=== PATIENT | male | born 1950 | race Caucasian/White ===

== ENCOUNTER 2019-05-23 17:45 | Inpatient (IN) | payer MEDICARE, OTHER ==
[~2019-05-23] VITALS: Ht 170.2 cm; Wt 105.2 kg
[2019-05-23 19:20] VITALS: BP 105/69
[2019-05-23] MEDS ORDERED: GuaiFENesin/D-METHORPHAN [SUGAR-FREE] 200-20MG/10 ML SYRUP UDCUP PO PRN (20:45)
[2019-05-23] MEDS: IPRATROPIUM BROMIDE 0.5 MG/2.5 ML NEB SOLUTION NEB PRN (21:42)
[2019-05-23] MEDS: ALBUTEROL SULFATE 2.5 MG/0.5 ML NEB SOLUTION NEB PRN (21:42)
[2019-05-23 21:51] VITALS: BP 124/74
[2019-05-23] MEDS: ACETAMINOPHEN 325 MG TABLET PO PRN (21:54)
[2019-05-23] MEDS: MELATONIN 5 MG TABLET PO PRN (21:55)
[2019-05-23] MEDS: ATORVASTATIN CALCIUM 40 MG TABLET PO SCH (21:55)
[2019-05-23] MEDS: CARVEDILOL 3.125 MG TABLET PO SCH (21:55)
[2019-05-23] MEDS: SENNA 187 MG TABLET PO SCH (21:55)
[2019-05-23] MEDS: DOCUSATE SODIUM 100 MG CAPSULE PO SCH (21:55)
[2019-05-23] MEDS: TICAGRELOR 90 MG TABLET PO SCH (21:56)
[2019-05-23] MEDS: HEPARIN SODIUM,PORCINE 5,000 UNITS/ML VIAL SQ SCH (21:58)
[2019-05-24 01:45] VITALS: BP 110/58
[2019-05-24 06:17] LABS: BASOPHILS % (AUTO) 1.3 % (0.0-2.0); HEMATOCRIT 32.1 % (41-53); LYMPHOCYTES # (AUTO) 1.2 K/uL (1.0-4.8); LYMPHOCYTES % (AUTO) 10.9 % (22.0-44.0); MEAN CORPUSCULAR HEMOGLOBIN 31.4 pg (26.0-34.0); MEAN CORPUSCULAR HGB CONC 34.2 G/dL (31.0-37.0); MEAN CORPUSCULAR VOLUME 92 fL (80-100); MONOCYTES # (AUTO) 0.8 K/uL (0.1-1.0); MONOCYTES % (AUTO) 7.5 % (2.0-9.0); NEUTROPHILS # (AUTO) 8.2 K/uL (1.8-7.7); NEUTROPHILS % (AUTO) 76.3 % (40.0-70.0); PLATELET COUNT (AUTO) 268 K/uL (150-450); RED BLOOD CELL COUNT(AUTO) 3.51 MIL/uL (4.50-5.90); RED CELL DISTRIBUTION WIDTH 15.6 % (11.5-14.5)
[2019-05-24 06:34] LABS: ALBUMIN 2.5 g/dL (3.4-5.0); BILIRUBIN,TOTAL 0.5 mg/dL (0.1-1.0); CALCIUM, TOTAL 8.8 mg/dL (8.8-10.5); CREATININE 2.09 mg/dL (0.60-1.30); POTASSIUM 4.7 mmol/L (3.5-5.1); TOTAL PROTEIN, SERUM 6.3 g/dL (6.4-8.2)
[2019-05-24] MEDS: LISINOPRIL 5 MG TABLET PO SCH (08:41)
[2019-05-24] MEDS: DOCUSATE SODIUM 100 MG CAPSULE PO SCH ×2 (08:41→20:32)
[2019-05-24] MEDS: CARVEDILOL 3.125 MG TABLET PO SCH ×2 (08:41→20:32)
[2019-05-24] MEDS: ASPIRIN 81 MG EC TABLET PO SCH (08:41)
[2019-05-24] MEDS: COLCHICINE 0.6 MG TABLET PO SCH (08:42)
[2019-05-24] MEDS: TICAGRELOR 90 MG TABLET PO SCH ×2 (08:42→20:32)
[2019-05-24] MEDS: NICOTINE 7 MG/24 HOUR PATCH TD SCH (08:45)
[2019-05-24 08:53] VITALS: BP 130/63
[2019-05-24] MEDS: HEPARIN SODIUM,PORCINE 5,000 UNITS/ML VIAL SQ SCH ×3 (09:35→20:32)
[2019-05-24 15:21] VITALS: BP 122/75
[2019-05-24] MEDS: ATORVASTATIN CALCIUM 40 MG TABLET PO SCH (20:32)
[2019-05-24] MEDS: MELATONIN 5 MG TABLET PO PRN (20:32)
[2019-05-24] MEDS: SENNA 187 MG TABLET PO SCH (20:32)
[2019-05-24] MEDS: IPRATROPIUM BROMIDE 0.5 MG/2.5 ML NEB SOLUTION NEB PRN (21:35)
[2019-05-24] MEDS: ALBUTEROL SULFATE 2.5 MG/0.5 ML NEB SOLUTION NEB PRN (21:35)
[2019-05-25 00:55] VITALS: BP 125/71
[2019-05-25] MEDS: ACETAMINOPHEN 325 MG TABLET PO PRN (03:47)
[2019-05-25] MEDS: COLCHICINE 0.6 MG TABLET PO SCH (08:50)
[2019-05-25] MEDS: CARVEDILOL 3.125 MG TABLET PO SCH ×2 (08:50→21:13)
[2019-05-25] MEDS: TICAGRELOR 90 MG TABLET PO SCH ×2 (08:50→21:14)
[2019-05-25] MEDS: LISINOPRIL 5 MG TABLET PO SCH (08:50)
[2019-05-25] MEDS: ASPIRIN 81 MG EC TABLET PO SCH (08:51)
[2019-05-25] MEDS: HEPARIN SODIUM,PORCINE 5,000 UNITS/ML VIAL SQ SCH ×2 (08:52→21:14)
[2019-05-25] MEDS: NICOTINE 7 MG/24 HOUR PATCH TD SCH (08:58)
[2019-05-25] MEDS: COLD CREAM, SKIN EMOLLIENT 170 GM JAR TP SCH (08:58)
[2019-05-25] MEDS: DOCUSATE SODIUM 100 MG CAPSULE PO SCH ×2 (08:59→21:00)
[2019-05-25 09:35] VITALS: BP 131/54
[2019-05-25] MEDS: FUROSEMIDE 40 MG TABLET PO SCH (13:21)
[2019-05-25 17:36] VITALS: BP 121/70
[2019-05-25] MEDS: SENNA 187 MG TABLET PO SCH (21:00)
[2019-05-25] MEDS: ATORVASTATIN CALCIUM 40 MG TABLET PO SCH (21:14)
[2019-05-25] MEDS: MELATONIN 5 MG TABLET PO PRN (21:18)
[2019-05-26 01:14] VITALS: BP 122/70
[2019-05-26] MEDS: ACETAMINOPHEN 325 MG TABLET PO PRN (04:21)
[2019-05-26 06:14] LABS: BASOPHILS % (AUTO) 0.3 % (0.0-2.0); EOSINOPHILS % (AUTO) 4.1 % (1.0-6.0); LYMPHOCYTES # (AUTO) 1.1 K/uL (1.0-4.8); LYMPHOCYTES % (AUTO) 9.9 % (22.0-44.0); MEAN CORPUSCULAR HEMOGLOBIN 31.8 pg (26.0-34.0); MEAN CORPUSCULAR HGB CONC 34.4 G/dL (31.0-37.0); MEAN CORPUSCULAR VOLUME 93 fL (80-100); MONOCYTES # (AUTO) 0.8 K/uL (0.1-1.0); NEUTROPHILS # (AUTO) 9.1 K/uL (1.8-7.7); NEUTROPHILS % (AUTO) 78.7 % (40.0-70.0); PLATELET COUNT (AUTO) 328 K/uL (150-450); RED BLOOD CELL COUNT(AUTO) 3.79 MIL/uL (4.50-5.90)
[2019-05-26 06:41] LABS: ALBUMIN 2.9 g/dL (3.4-5.0); BILIRUBIN,TOTAL 0.8 mg/dL (0.1-1.0); CALCIUM, TOTAL 9.5 mg/dL (8.8-10.5); CREATININE 2.07 mg/dL (0.60-1.30); POTASSIUM 4.6 mmol/L (3.5-5.1); TOTAL PROTEIN, SERUM 7.3 g/dL (6.4-8.2)
[2019-05-26 07:45] VITALS: BP 124/74
[2019-05-26] MEDS: TICAGRELOR 90 MG TABLET PO SCH ×2 (08:46→21:25)
[2019-05-26] MEDS: COLCHICINE 0.6 MG TABLET PO SCH (08:46)
[2019-05-26] MEDS: ASPIRIN 81 MG EC TABLET PO SCH (08:47)
[2019-05-26] MEDS: LISINOPRIL 5 MG TABLET PO SCH (08:47)
[2019-05-26] MEDS: FUROSEMIDE 40 MG TABLET PO SCH (08:47)
[2019-05-26] MEDS: CARVEDILOL 3.125 MG TABLET PO SCH ×2 (08:47→21:25)
[2019-05-26] MEDS: HEPARIN SODIUM,PORCINE 5,000 UNITS/ML VIAL SQ SCH ×2 (08:48→21:26)
[2019-05-26] MEDS: COLD CREAM, SKIN EMOLLIENT 170 GM JAR TP SCH (08:54)
[2019-05-26] MEDS: NICOTINE 7 MG/24 HOUR PATCH TD SCH (08:59)
[2019-05-26] MEDS: DOCUSATE SODIUM 100 MG CAPSULE PO SCH ×2 (09:00→21:00)
[2019-05-26 16:03] VITALS: BP 134/56
[2019-05-26] MEDS: SENNA 187 MG TABLET PO SCH (21:00)
[2019-05-26] MEDS: ATORVASTATIN CALCIUM 40 MG TABLET PO SCH (21:25)
[2019-05-26] MEDS: MELATONIN 5 MG TABLET PO PRN (21:25)
[2019-05-27 02:48] VITALS: BP 122/68
[2019-05-27] MEDS: ACETAMINOPHEN 325 MG TABLET PO PRN (03:43)
[2019-05-27] MEDS: FAMOTIDINE 20 MG TABLET PO SCH ×2 (06:01→17:04)
[2019-05-27 08:02] VITALS: BP 114/56
[2019-05-27] MEDS: DOCUSATE SODIUM 100 MG CAPSULE PO SCH ×3 (09:00→21:05)
[2019-05-27] MEDS: NICOTINE 7 MG/24 HOUR PATCH TD SCH (09:00)
[2019-05-27] MEDS: COLCHICINE 0.6 MG TABLET PO SCH (09:11)
[2019-05-27] MEDS: LISINOPRIL 5 MG TABLET PO SCH (09:11)
[2019-05-27] MEDS: TICAGRELOR 90 MG TABLET PO SCH ×2 (09:11→21:05)
[2019-05-27] MEDS: CARVEDILOL 3.125 MG TABLET PO SCH ×2 (09:11→21:05)
[2019-05-27] MEDS: FUROSEMIDE 40 MG TABLET PO SCH (09:11)
[2019-05-27] MEDS: POTASSIUM CHLORIDE 20 MEQ ER TABLET PO SCH (09:12)
[2019-05-27] MEDS: ASPIRIN 81 MG EC TABLET PO SCH (09:12)
[2019-05-27] MEDS: HEPARIN SODIUM,PORCINE 5,000 UNITS/ML VIAL SQ SCH ×2 (09:13→21:05)
[2019-05-27] MEDS: COLD CREAM, SKIN EMOLLIENT 170 GM JAR TP SCH (09:16)
[2019-05-27 16:20] VITALS: BP 113/61
[2019-05-27] MEDS: SENNA 187 MG TABLET PO SCH ×2 (21:00→21:05)
[2019-05-27] MEDS: ATORVASTATIN CALCIUM 40 MG TABLET PO SCH (21:05)
[2019-05-27 21:14] VITALS: BP 125/69
[2019-05-28 01:28] VITALS: BP 139/82
[2019-05-28] MEDS: ACETAMINOPHEN 325 MG TABLET PO PRN ×2 (01:28→08:05)
[2019-05-28] MEDS: FAMOTIDINE 20 MG TABLET PO SCH ×2 (05:09→17:08)
[2019-05-28 08:05] VITALS: BP 124/73
[2019-05-28] MEDS: POTASSIUM CHLORIDE 20 MEQ ER TABLET PO SCH (08:05)
[2019-05-28] MEDS: DOCUSATE SODIUM 100 MG CAPSULE PO SCH ×2 (08:05→20:15)
[2019-05-28] MEDS: LISINOPRIL 5 MG TABLET PO SCH (08:05)
[2019-05-28] MEDS: FUROSEMIDE 40 MG TABLET PO SCH (08:05)
[2019-05-28] MEDS: ASPIRIN 81 MG EC TABLET PO SCH (08:05)
[2019-05-28] MEDS: HEPARIN SODIUM,PORCINE 5,000 UNITS/ML VIAL SQ SCH ×2 (08:05→20:15)
[2019-05-28] MEDS: COLCHICINE 0.6 MG TABLET PO SCH (08:05)
[2019-05-28] MEDS: CARVEDILOL 3.125 MG TABLET PO SCH ×2 (08:06→20:15)
[2019-05-28] MEDS: NICOTINE 7 MG/24 HOUR PATCH TD SCH (08:06)
[2019-05-28] MEDS: COLD CREAM, SKIN EMOLLIENT 170 GM JAR TP SCH (08:07)
[2019-05-28] MEDS: TICAGRELOR 90 MG TABLET PO SCH ×2 (08:07→20:15)
[2019-05-28 09:55] VITALS: BP 124/73
[2019-05-28 16:57] VITALS: BP 122/65
[2019-05-28] MEDS: SENNA 187 MG TABLET PO SCH (20:15)
[2019-05-28] MEDS: ATORVASTATIN CALCIUM 40 MG TABLET PO SCH (20:15)
[2019-05-28 20:16] VITALS: BP 112/59
[2019-05-29 00:06] VITALS: BP 144/72
[2019-05-29] MEDS: FAMOTIDINE 20 MG TABLET PO SCH ×2 (05:51→16:34)
[2019-05-29] MEDS: ACETAMINOPHEN 325 MG TABLET PO PRN ×3 (06:36→21:41)
[2019-05-29 07:36] VITALS: BP 130/74
[2019-05-29] MEDS: COLCHICINE 0.6 MG TABLET PO SCH (08:32)
[2019-05-29] MEDS: POTASSIUM CHLORIDE 20 MEQ ER TABLET PO SCH (08:33)
[2019-05-29] MEDS: TICAGRELOR 90 MG TABLET PO SCH ×2 (08:33→19:08)
[2019-05-29] MEDS: CARVEDILOL 3.125 MG TABLET PO SCH ×2 (08:33→19:08)
[2019-05-29] MEDS: DOCUSATE SODIUM 100 MG CAPSULE PO SCH ×2 (08:33→19:09)
[2019-05-29] MEDS: LISINOPRIL 5 MG TABLET PO SCH (08:33)
[2019-05-29] MEDS: ASPIRIN 81 MG EC TABLET PO SCH (08:33)
[2019-05-29] MEDS: FUROSEMIDE 40 MG TABLET PO SCH (08:33)
[2019-05-29] MEDS: HEPARIN SODIUM,PORCINE 5,000 UNITS/ML VIAL SQ SCH ×2 (08:34→19:08)
[2019-05-29] MEDS: NICOTINE 7 MG/24 HOUR PATCH TD SCH (08:35)
[2019-05-29] MEDS: COLD CREAM, SKIN EMOLLIENT 170 GM JAR TP SCH (08:35)
[2019-05-29 15:26] VITALS: BP 120/70
[2019-05-29] MEDS: ATORVASTATIN CALCIUM 40 MG TABLET PO SCH (19:08)
[2019-05-29] MEDS: SENNA 187 MG TABLET PO SCH (19:08)
[2019-05-29 19:09] VITALS: BP 109/66
[2019-05-29] MEDS: MELATONIN 5 MG TABLET PO PRN (19:21)
[2019-05-30] VITALS: BP 118/64
[2019-05-30] MEDS: FAMOTIDINE 20 MG TABLET PO SCH ×2 (06:13→16:31)
[2019-05-30 08:00] VITALS: BP 130/62
[2019-05-30] MEDS: TICAGRELOR 90 MG TABLET PO SCH ×2 (08:40→20:29)
[2019-05-30] MEDS: HEPARIN SODIUM,PORCINE 5,000 UNITS/ML VIAL SQ SCH ×2 (08:40→20:29)
[2019-05-30] MEDS: DOCUSATE SODIUM 100 MG CAPSULE PO SCH ×2 (08:40→20:29)
[2019-05-30] MEDS: POTASSIUM CHLORIDE 20 MEQ ER TABLET PO SCH (08:40)
[2019-05-30] MEDS: FUROSEMIDE 40 MG TABLET PO SCH (08:40)
[2019-05-30] MEDS: LISINOPRIL 5 MG TABLET PO SCH (08:40)
[2019-05-30] MEDS: CARVEDILOL 3.125 MG TABLET PO SCH ×2 (08:40→20:29)
[2019-05-30] MEDS: COLCHICINE 0.6 MG TABLET PO SCH (08:41)
[2019-05-30] MEDS: ASPIRIN 81 MG EC TABLET PO SCH (08:41)
[2019-05-30] MEDS: COLD CREAM, SKIN EMOLLIENT 170 GM JAR TP SCH (08:42)
[2019-05-30] MEDS ORDERED: LISI-660 PO (11:02)
[2019-05-30] MEDS ORDERED: FURO20TA4 PO (11:03)
[2019-05-30] MEDS ORDERED: ATOR40TA71 PO (11:04)
[2019-05-30] MEDS ORDERED: NICO-704 TD (11:04)
[2019-05-30] MEDS ORDERED: METO25XL PO (11:05)
[2019-05-30] MEDS ORDERED: ASPI-1182 PO (11:12)
[2019-05-30] MEDS: ACETAMINOPHEN 325 MG TABLET PO PRN (13:32)
[2019-05-30 15:40] VITALS: BP 128/63
[2019-05-30] MEDS ORDERED: LISI-661 PO (16:51)
[2019-05-30] MEDS ORDERED: METO-558 PO (16:51)
[2019-05-30] MEDS: BENZOCAINE/MENTHOL LOZENGE PO PRN (18:40)
[2019-05-30 20:27] VITALS: BP 132/71
[2019-05-30] MEDS: SENNA 187 MG TABLET PO SCH (20:29)
[2019-05-30] MEDS: ATORVASTATIN CALCIUM 40 MG TABLET PO SCH (20:29)
[2019-05-30] MEDS: MELATONIN 5 MG TABLET PO PRN (21:39)
[2019-05-31 01:00] VITALS: BP 143/69
[2019-05-31] MEDS: ACETAMINOPHEN 325 MG TABLET PO PRN ×2 (04:06→23:59)
[2019-05-31] MEDS: BENZOCAINE/MENTHOL LOZENGE PO PRN ×2 (04:07→22:15)
[2019-05-31] MEDS: FAMOTIDINE 20 MG TABLET PO SCH ×2 (06:38→17:07)
[2019-05-31 06:43] LABS: BASOPHILS % (AUTO) 0.5 % (0.0-2.0); EOSINOPHILS % (AUTO) 4.7 % (1.0-6.0); HEMATOCRIT 36.7 % (41-53); HEMOGLOBIN 12.5 g/dL (13.5-17.5); LYMPHOCYTES # (AUTO) 0.9 K/uL (1.0-4.8); LYMPHOCYTES % (AUTO) 11.4 % (22.0-44.0); MEAN CORPUSCULAR HEMOGLOBIN 31.6 pg (26.0-34.0); MEAN CORPUSCULAR HGB CONC 34.1 G/dL (31.0-37.0); MEAN CORPUSCULAR VOLUME 93 fL (80-100); MONOCYTES # (AUTO) 0.6 K/uL (0.1-1.0); NEUTROPHILS % (AUTO) 75.4 % (40.0-70.0); PLATELET COUNT (AUTO) 319 K/uL (150-450); RED BLOOD CELL COUNT(AUTO) 3.96 MIL/uL (4.50-5.90); RED CELL DISTRIBUTION WIDTH 15.9 % (11.5-14.5)
[2019-05-31 07:08] LABS: ALBUMIN 3.2 g/dL (3.4-5.0); BILIRUBIN,TOTAL 0.7 mg/dL (0.1-1.0); CALCIUM, TOTAL 9.9 mg/dL (8.8-10.5); CREATININE 2.23 mg/dL (0.60-1.30); POTASSIUM 4.3 mmol/L (3.5-5.1); TOTAL PROTEIN, SERUM 7.7 g/dL (6.4-8.2)
[2019-05-31] MEDS: COLCHICINE 0.6 MG TABLET PO SCH (08:23)
[2019-05-31] MEDS: LISINOPRIL 5 MG TABLET PO SCH (08:23)
[2019-05-31] MEDS: CARVEDILOL 3.125 MG TABLET PO SCH ×2 (08:23→21:07)
[2019-05-31] MEDS: ASPIRIN 81 MG EC TABLET PO SCH (08:23)
[2019-05-31] MEDS: TICAGRELOR 90 MG TABLET PO SCH ×2 (08:23→21:07)
[2019-05-31] MEDS: POTASSIUM CHLORIDE 20 MEQ ER TABLET PO SCH (08:24)
[2019-05-31] MEDS: DOCUSATE SODIUM 100 MG CAPSULE PO SCH ×2 (08:24→21:07)
[2019-05-31] MEDS: HEPARIN SODIUM,PORCINE 5,000 UNITS/ML VIAL SQ SCH ×2 (08:24→21:06)
[2019-05-31] MEDS: FUROSEMIDE 40 MG TABLET PO SCH (08:24)
[2019-05-31] MEDS: COLD CREAM, SKIN EMOLLIENT 170 GM JAR TP SCH (08:25)
[2019-05-31 08:41] VITALS: BP 126/73
[2019-05-31 08:48] VITALS: BP 126/73
[2019-05-31 15:45] VITALS: BP 115/66
[2019-05-31 21:03] VITALS: BP 110/55
[2019-05-31] MEDS: ATORVASTATIN CALCIUM 40 MG TABLET PO SCH (21:06)
[2019-05-31] MEDS: MELATONIN 5 MG TABLET PO PRN (21:06)
[2019-05-31] MEDS: SENNA 187 MG TABLET PO SCH (21:07)
[2019-05-31 23:59] VITALS: BP 122/57
[2019-06-01] MEDS: FAMOTIDINE 20 MG TABLET PO SCH ×2 (06:31→16:53)
[2019-06-01 07:20] VITALS: BP 138/63
[2019-06-01] MEDS: HEPARIN SODIUM,PORCINE 5,000 UNITS/ML VIAL SQ SCH ×2 (08:36→21:19)
[2019-06-01] MEDS: TICAGRELOR 90 MG TABLET PO SCH ×2 (08:37→21:19)
[2019-06-01] MEDS: CARVEDILOL 3.125 MG TABLET PO SCH ×2 (08:37→21:19)
[2019-06-01] MEDS: POTASSIUM CHLORIDE 20 MEQ ER TABLET PO SCH (08:37)
[2019-06-01] MEDS: DOCUSATE SODIUM 100 MG CAPSULE PO SCH ×2 (08:37→21:19)
[2019-06-01] MEDS: FUROSEMIDE 40 MG TABLET PO SCH (08:37)
[2019-06-01] MEDS: COLCHICINE 0.6 MG TABLET PO SCH (08:37)
[2019-06-01] MEDS: ASPIRIN 81 MG EC TABLET PO SCH (08:37)
[2019-06-01] MEDS: LISINOPRIL 5 MG TABLET PO SCH (08:37)
[2019-06-01] MEDS: COLD CREAM, SKIN EMOLLIENT 170 GM JAR TP SCH (08:38)
[2019-06-01] MEDS: BENZOCAINE/MENTHOL LOZENGE PO PRN (13:22)
[2019-06-01 16:32] VITALS: BP 131/68
[2019-06-01] MEDS: ALBUTEROL SULFATE 2.5 MG/0.5 ML NEB SOLUTION NEB SCH ×3 (17:01→23:00)
[2019-06-01] MEDS: IPRATROPIUM BROMIDE 0.5 MG/2.5 ML NEB SOLUTION NEB SCH ×3 (17:01→23:00)
[2019-06-01] MEDS: SENNA 187 MG TABLET PO SCH (21:19)
[2019-06-01] MEDS: ATORVASTATIN CALCIUM 40 MG TABLET PO SCH (21:19)
[2019-06-01] MEDS: ACETAMINOPHEN 325 MG TABLET PO PRN (23:20)
[2019-06-01] MEDS: MELATONIN 5 MG TABLET PO PRN (23:20)
[2019-06-02 00:20] VITALS: BP 126/66
[2019-06-02] MEDS: IPRATROPIUM BROMIDE 0.5 MG/2.5 ML NEB SOLUTION NEB SCH ×6 (02:40→23:19)
[2019-06-02] MEDS: ALBUTEROL SULFATE 2.5 MG/0.5 ML NEB SOLUTION NEB SCH ×6 (02:40→23:19)
[2019-06-02] MEDS: FAMOTIDINE 20 MG TABLET PO SCH ×2 (06:31→16:41)
[2019-06-02 06:40] LABS: CALCIUM, TOTAL 9.1 mg/dL (8.8-10.5); CREATININE 2.21 mg/dL (0.60-1.30); POTASSIUM 4.4 mmol/L (3.5-5.1)
[2019-06-02] MEDS: HEPARIN SODIUM,PORCINE 5,000 UNITS/ML VIAL SQ SCH ×2 (07:53→20:04)
[2019-06-02] MEDS: POTASSIUM CHLORIDE 20 MEQ ER TABLET PO SCH (07:54)
[2019-06-02] MEDS: ASPIRIN 81 MG EC TABLET PO SCH (07:54)
[2019-06-02] MEDS: DOCUSATE SODIUM 100 MG CAPSULE PO SCH ×2 (07:55→20:04)
[2019-06-02] MEDS: TICAGRELOR 90 MG TABLET PO SCH ×2 (07:55→20:04)
[2019-06-02] MEDS: COLCHICINE 0.6 MG TABLET PO SCH (07:55)
[2019-06-02] MEDS: LISINOPRIL 5 MG TABLET PO SCH (07:55)
[2019-06-02] MEDS: FUROSEMIDE 40 MG TABLET PO SCH (07:55)
[2019-06-02] MEDS: CARVEDILOL 3.125 MG TABLET PO SCH ×2 (07:55→20:04)
[2019-06-02] MEDS: COLD CREAM, SKIN EMOLLIENT 170 GM JAR TP SCH (08:08)
[2019-06-02 08:47] VITALS: BP 148/60
[2019-06-02 15:58] VITALS: BP 118/86
[2019-06-02] MEDS: SENNA 187 MG TABLET PO SCH (20:04)
[2019-06-02] MEDS: ATORVASTATIN CALCIUM 40 MG TABLET PO SCH (20:04)
[2019-06-02] MEDS: MELATONIN 5 MG TABLET PO PRN (20:04)
[2019-06-03] MEDS ORDERED: COLC0.6T73 PO (00:36)
[2019-06-03] MEDS ORDERED: FURO40 PO (00:36)
[2019-06-03] MEDS ORDERED: FAMO20 PO (00:36)
[2019-06-03] MEDS ORDERED: TICA90TA PO (00:36)
[2019-06-03] MEDS ORDERED: DOCU-275 PO (00:36)
[2019-06-03] MEDS ORDERED: LISI-660 PO (00:36)
[2019-06-03] MEDS ORDERED: CARV3 PO (00:36)
[2019-06-03] MEDS ORDERED: KDUR20 PO (00:36)
[2019-06-03] MEDS ORDERED: IPRA4AER IH (00:39)
[2019-06-03 02:00] VITALS: BP 106/58
[2019-06-03] MEDS: ALBUTEROL SULFATE 2.5 MG/0.5 ML NEB SOLUTION NEB SCH ×6 (03:21→23:00)
[2019-06-03] MEDS: IPRATROPIUM BROMIDE 0.5 MG/2.5 ML NEB SOLUTION NEB SCH ×6 (03:21→23:00)
[2019-06-03] MEDS: ACETAMINOPHEN 325 MG TABLET PO PRN (03:40)
[2019-06-03] MEDS: BENZOCAINE/MENTHOL LOZENGE PO PRN ×4 (04:16→21:01)
[2019-06-03] MEDS: FAMOTIDINE 20 MG TABLET PO SCH ×2 (06:08→16:58)
[2019-06-03 06:24] LABS: BASOPHILS % (AUTO) 1.4 % (0.0-2.0); EOSINOPHILS % (AUTO) 6.4 % (1.0-6.0); HEMATOCRIT 33.2 % (41-53); HEMOGLOBIN 11.3 g/dL (13.5-17.5); LYMPHOCYTES # (AUTO) 1.1 K/uL (1.0-4.8); LYMPHOCYTES % (AUTO) 13.9 % (22.0-44.0); MEAN CORPUSCULAR HEMOGLOBIN 31.6 pg (26.0-34.0); MEAN CORPUSCULAR HGB CONC 34.1 G/dL (31.0-37.0); MEAN CORPUSCULAR VOLUME 93 fL (80-100); MONOCYTES # (AUTO) 0.8 K/uL (0.1-1.0); MONOCYTES % (AUTO) 10.3 % (2.0-9.0); NEUTROPHILS # (AUTO) 5.5 K/uL (1.8-7.7); PLATELET COUNT (AUTO) 241 K/uL (150-450); RED BLOOD CELL COUNT(AUTO) 3.58 MIL/uL (4.50-5.90); RED CELL DISTRIBUTION WIDTH 15.9 % (11.5-14.5)
[2019-06-03 06:46] LABS: BILIRUBIN,TOTAL 0.5 mg/dL (0.1-1.0); CALCIUM, TOTAL 9.4 mg/dL (8.8-10.5); CREATININE 2.4 mg/dL (0.60-1.30); POTASSIUM 4.6 mmol/L (3.5-5.1)
[2019-06-03 07:35] VITALS: BP 126/69
[2019-06-03] MEDS: CARVEDILOL 3.125 MG TABLET PO SCH ×2 (07:46→20:28)
[2019-06-03] MEDS: POTASSIUM CHLORIDE 20 MEQ ER TABLET PO SCH (07:46)
[2019-06-03] MEDS: LISINOPRIL 5 MG TABLET PO SCH (07:46)
[2019-06-03] MEDS: FUROSEMIDE 40 MG TABLET PO SCH (07:47)
[2019-06-03] MEDS: TICAGRELOR 90 MG TABLET PO SCH ×2 (07:47→20:28)
[2019-06-03] MEDS: HEPARIN SODIUM,PORCINE 5,000 UNITS/ML VIAL SQ SCH ×2 (07:47→20:28)
[2019-06-03] MEDS: DOCUSATE SODIUM 100 MG CAPSULE PO SCH ×2 (07:47→20:28)
[2019-06-03] MEDS: COLCHICINE 0.6 MG TABLET PO SCH (07:47)
[2019-06-03] MEDS: ASPIRIN 81 MG EC TABLET PO SCH (07:47)
[2019-06-03] MEDS: COLD CREAM, SKIN EMOLLIENT 170 GM JAR TP SCH (07:50)
[2019-06-03 18:53] VITALS: BP 126/68
[2019-06-03] MEDS: MELATONIN 5 MG TABLET PO PRN (20:28)
[2019-06-03] MEDS: ATORVASTATIN CALCIUM 40 MG TABLET PO SCH (20:28)
[2019-06-03] MEDS: SENNA 187 MG TABLET PO SCH (20:28)
[2019-06-04 02:00] VITALS: BP 124/58
[2019-06-04] MEDS: ACETAMINOPHEN 325 MG TABLET PO PRN ×2 (02:54→14:54)
[2019-06-04] MEDS: BENZOCAINE/MENTHOL LOZENGE PO PRN ×4 (02:55→14:54)
[2019-06-04] MEDS: ALBUTEROL SULFATE 2.5 MG/0.5 ML NEB SOLUTION NEB SCH ×6 (03:00→23:00)
[2019-06-04] MEDS: IPRATROPIUM BROMIDE 0.5 MG/2.5 ML NEB SOLUTION NEB SCH ×6 (03:00→23:00)
[2019-06-04] MEDS: FAMOTIDINE 20 MG TABLET PO SCH ×2 (06:39→16:38)
[2019-06-04 08:00] VITALS: BP 126/56
[2019-06-04] MEDS: FUROSEMIDE 40 MG TABLET PO SCH (08:29)
[2019-06-04] MEDS: POTASSIUM CHLORIDE 20 MEQ ER TABLET PO SCH (08:29)
[2019-06-04] MEDS: ASPIRIN 81 MG EC TABLET PO SCH (08:29)
[2019-06-04] MEDS: COLCHICINE 0.6 MG TABLET PO SCH (08:29)
[2019-06-04] MEDS: LISINOPRIL 5 MG TABLET PO SCH (08:29)
[2019-06-04] MEDS: TICAGRELOR 90 MG TABLET PO SCH ×2 (08:29→21:16)
[2019-06-04] MEDS: CARVEDILOL 3.125 MG TABLET PO SCH ×2 (08:30→21:15)
[2019-06-04] MEDS: DOCUSATE SODIUM 100 MG CAPSULE PO SCH ×2 (08:30→21:15)
[2019-06-04] MEDS: HEPARIN SODIUM,PORCINE 5,000 UNITS/ML VIAL SQ SCH ×2 (08:35→21:16)
[2019-06-04] MEDS: COLD CREAM, SKIN EMOLLIENT 170 GM JAR TP SCH (08:42)
[2019-06-04 16:07] VITALS: BP 122/75
[2019-06-04] MEDS: SENNA 187 MG TABLET PO SCH (21:15)
[2019-06-04] MEDS: ATORVASTATIN CALCIUM 40 MG TABLET PO SCH (21:16)
[2019-06-04 21:24] VITALS: BP 120/54
[2019-06-04] MEDS: MELATONIN 5 MG TABLET PO PRN (23:56)
[2019-06-05 01:00] VITALS: BP 128/70
[2019-06-05] MEDS: ALBUTEROL SULFATE 2.5 MG/0.5 ML NEB SOLUTION NEB SCH ×3 (03:00→11:00)
[2019-06-05] MEDS: IPRATROPIUM BROMIDE 0.5 MG/2.5 ML NEB SOLUTION NEB SCH ×3 (03:00→11:00)
[2019-06-05] MEDS: FAMOTIDINE 20 MG TABLET PO SCH (05:53)
[2019-06-05] MEDS: ACETAMINOPHEN 325 MG TABLET PO PRN (05:54)
[2019-06-05 08:00] VITALS: BP 104/63
[2019-06-05] MEDS: DOCUSATE SODIUM 100 MG CAPSULE PO SCH (08:47)
[2019-06-05] MEDS: COLCHICINE 0.6 MG TABLET PO SCH (08:47)
[2019-06-05] MEDS: ASPIRIN 81 MG EC TABLET PO SCH (08:47)
[2019-06-05] MEDS: CARVEDILOL 3.125 MG TABLET PO SCH (08:47)
[2019-06-05] MEDS: TICAGRELOR 90 MG TABLET PO SCH (08:47)
[2019-06-05] MEDS: POTASSIUM CHLORIDE 20 MEQ ER TABLET PO SCH (08:47)
[2019-06-05] MEDS: HEPARIN SODIUM,PORCINE 5,000 UNITS/ML VIAL SQ SCH (08:47)
[2019-06-05] MEDS: LISINOPRIL 5 MG TABLET PO SCH ×2 (08:47→09:00)
[2019-06-05] MEDS: COLD CREAM, SKIN EMOLLIENT 170 GM JAR TP SCH (08:48)
[2019-06-05] MEDS: FUROSEMIDE 40 MG TABLET PO SCH (08:48)
== END 2019-06-05 11:00 | disposition home health service (06) | DRG 291 ==
LOC: EDBD 19:15 → 2WR 19:15
PROVIDERS: ADMIT Physical Medicine & Rehabilitation; ATTEND Physical Medicine & Rehabilitation
PROC: 5A09357 Assistance with Respiratory Ventilation, Less than 24 Consecutive Hours, Continuous Positive Airway Pressure (ICD-10-PCS; 2019-05-23)
PROC: 5A09357 Assistance with Respiratory Ventilation, Less than 24 Consecutive Hours, Continuous Positive Airway Pressure (ICD-10-PCS; 2019-05-24)
PROC: 5A09357 Assistance with Respiratory Ventilation, Less than 24 Consecutive Hours, Continuous Positive Airway Pressure (ICD-10-PCS; 2019-05-25)
PROC: 5A09357 Assistance with Respiratory Ventilation, Less than 24 Consecutive Hours, Continuous Positive Airway Pressure (ICD-10-PCS; principal; 2019-05-29)
DX: I13.0 Hypertensive heart and chronic kidney disease with heart failure and stage 1 through stage 4 chronic kidney disease, or unspecified chronic kidney disease (principal); J96.02 Acute respiratory failure with hypercapnia; J96.01 Acute respiratory failure with hypoxia; J69.0 Pneumonitis due to inhalation of food and vomit; N18.4 Chronic kidney disease, stage 4 (severe); K50.90 Crohn's disease, unspecified, without complications; E46 Unspecified protein-calorie malnutrition; I25.10 Atherosclerotic heart disease of native coronary artery without angina pectoris; I50.9 Heart failure, unspecified; L97.519 Non-pressure chronic ulcer of other part of right foot with unspecified severity; I73.9 Peripheral vascular disease, unspecified; G47.33 Obstructive sleep apnea (adult) (pediatric); E66.9 Obesity, unspecified; D64.9 Anemia, unspecified; Z68.36 Body mass index [BMI] 36.0-36.9, adult; Z95.5 Presence of coronary angioplasty implant and graft; I25.2 Old myocardial infarction; E78.5 Hyperlipidemia, unspecified; G89.29 Other chronic pain; M10.9 Gout, unspecified; Z53.20 Procedure and treatment not carried out because of patient's decision for unspecified reasons; Z79.02 Long term (current) use of antithrombotics/antiplatelets; Z79.82 Long term (current) use of aspirin; Z79.899 Other long term (current) drug therapy
CPT/HCPCS: 87081; 92507; 92523; 93005; 94640; 94660; 97110; 97116; 97150; 97162; 97166; 97530; 97535; 99366; G0238; J1644